=== PATIENT | male | born 1990 | race African-American/Black ===

== ENCOUNTER 2016-12-06 19:15 | Emergency (ER) | payer MEDICAID, OTHER ==
[~2016-12-06] VITALS: Ht 177.8 cm; Wt 81.0 kg
[2016-12-06] MEDS ORDERED: ONDANSETRON HCL 4 MG/2 ML VIAL IVP ONE ×2 (21:00→22:45)
[2016-12-06] MEDS ORDERED: SODIUM CHLORIDE 0.9% 1,000 ML IV ONE ×2 (21:00→22:45)
[2016-12-06 21:09] LABS: BASOPHILS # (AUTO) 0.01 K/uL (0.00-0.20); BASOPHILS % (AUTO) 0.1 % (0.0-2.0); EOSINOPHILS % (AUTO) 0.01 % (1.0-6.0); HEMATOCRIT 52.6 % (41-53); LYMPHOCYTES # (AUTO) 0.7 K/uL (1.0-4.8); LYMPHOCYTES % (AUTO) 3.4 % (22.0-44.0); MEAN CORPUSCULAR HEMOGLOBIN 28.1 pg (26.0-34.0); MEAN CORPUSCULAR HGB CONC 32.3 G/dL (31.0-37.0); MEAN CORPUSCULAR VOLUME 87 fL (80-100); MONOCYTES # (AUTO) 0.4 K/uL (0.1-1.0); MONOCYTES % (AUTO) 1.9 % (2.0-9.0); NEUTROPHILS # (AUTO) 20.1 K/uL (1.8-7.7); NEUTROPHILS % (AUTO) 94.7 % (40.0-70.0); PLATELET COUNT (AUTO) 210 K/uL (150-450); RED BLOOD CELL COUNT(AUTO) 6.06 MIL/uL (4.50-5.90); RED CELL DISTRIBUTION WIDTH 14.3 % (11.5-14.5); WHITE BLOOD COUNT (AUTO) 21.2 K/uL (4.5-11.0)
[2016-12-06 21:14] LABS: ANION GAP 13 mmol/L (8-16); CALCIUM, TOTAL 8.6 mg/dL (8.8-10.5); CARBON DIOXIDE 24 mmol/L (22-29); CHLORIDE 103 mmol/L (98-107); CREATININE 1.53 mg/dL (0.60-1.30); GLOMERULAR FILTR. RATE CALC > 60 mL/min (>60); POTASSIUM 3.6 mmol/L (3.5-5.1); SODIUM SERUM 140 mmol/L (136-145); UREA NITROGEN, BLOOD 7 mg/dL (7-18)
[2016-12-06 21:22] LABS: RBC MORPHOLOGY COMMENT NORMAL RBC MORPH
[2016-12-06 21:23] LABS: ALANINE AMINOTRANSFERASE 35 U/L (12-78); ALBUMIN 3.5 g/dL (3.4-5.0); ASPARTATE AMINOTRANSFERASE 29 U/L (15-37); BILIRUBIN,TOTAL 0.5 mg/dL (0.1-1.0); TOTAL PROTEIN, SERUM 6.5 g/dL (6.4-8.2)
[2016-12-06] MEDS ORDERED: DiphenhydrAMINE HCL 50 MG/ML VIAL IVP ONE (21:45)
[2016-12-06] MEDS ORDERED: PROMETHAZINE HCL 25 MG/ML VIAL IM ONE (21:45)
[2016-12-06] MEDS ORDERED: BARIUM SULFATE 0.1% SUSPENSION 450 ML BOTTLE PO ONE (22:15)
[2016-12-06] MEDS ORDERED: HYDROmorphone 2 MG/ML SYRINGE IVP ONE (22:45)
[2016-12-06 23:07] LABS: APPEARANCE,URINE CLEAR (CLEAR); GLUCOSE, URINE (UA) NEGATIVE (NEGATIVE); KETONES,URINE >=80 mg/dL (NEGATIVE); LEUKOCYTE ESTERASE ,URINE NEGATIVE (NEGATIVE); OCCULT BLOOD,URINE NEGATIVE (NEGATIVE); PROTEIN,URINE NEGATIVE (NEGATIVE)
[2016-12-06 23:10] LABS: ADD UA MICROSCOPIC NO
[2016-12-06] MEDS ORDERED: IODIXANOL 320 MG/ML 100 ML VIAL ONE (23:32)
[2016-12-06] MEDS ORDERED: SODIUM CHLORIDE 0.9% 100 ML ONE (23:33)
[2016-12-07 01:13] VITALS: BP 133/71
== END 2016-12-07 01:16 | disposition home or self-care (01) ==
LOC: EMS 19:17
DX: R10.9 Unspecified abdominal pain (principal); R11.2 Nausea with vomiting, unspecified; K21.9 Gastro-esophageal reflux disease without esophagitis; F17.210 Nicotine dependence, cigarettes, uncomplicated; F12.90 Cannabis use, unspecified, uncomplicated
CPT/HCPCS: 36415; 74177; 80053; 80307; 81003; 83690; 85025; 96361; 96372; 96374; 96375; 96376; 99285; J1170; J1200; J2405; J2550; J7030; J7050; Q9967; Z7610

== ENCOUNTER 2017-01-03 21:52 | Emergency (ER) | payer OTHER ==
[~2017-01-03] VITALS: Ht 172.7 cm; Wt 72.0 kg
[2017-01-03] MEDS ORDERED: PROM25 PO (22:01)
[2017-01-03] MEDS ORDERED: SODIUM CHLORIDE 0.9% 1,000 ML IV ONE (22:15)
[2017-01-03] MEDS ORDERED: HALOPERIDOL LACTATE 5 MG/ML VIAL IVP ONE (22:15)
[2017-01-04 00:41] VITALS: BP 128/82
== END 2017-01-04 00:44 | disposition home or self-care (01) ==
LOC: EMS 21:53
DX: R11.2 Nausea with vomiting, unspecified (principal); K21.9 Gastro-esophageal reflux disease without esophagitis; F12.10 Cannabis abuse, uncomplicated; F17.210 Nicotine dependence, cigarettes, uncomplicated
CPT/HCPCS: 96361; 96374; 99285; J1630; J7030

== ENCOUNTER 2017-07-05 20:57 | Emergency (ER) | payer OTHER ==
[~2017-07-05] VITALS: Ht 175.3 cm; Wt 81.8 kg
[~2017-07-05 20:57] MED LIST: PROM25 PO
[2017-07-05] MEDS ORDERED: HALOPERIDOL LACTATE 5 MG/ML VIAL IVP ONE (22:15)
[2017-07-05] MEDS ORDERED: SODIUM CHLORIDE 0.9% 1,000 ML IV ONE (22:15)
[2017-07-05 22:45] LABS: BASOPHILS # (AUTO) 0.02 K/uL (0.00-0.20); BASOPHILS % (AUTO) 0.2 % (0.0-2.0); EOSINOPHILS # (AUTO) 0.01 K/uL (0.00-0.70); EOSINOPHILS % (AUTO) 0.11 % (1.0-6.0); HEMATOCRIT 50.5 % (41-53); HEMOGLOBIN 16.1 g/dL (13.5-17.5); LYMPHOCYTES # (AUTO) 1.4 K/uL (1.0-4.8); LYMPHOCYTES % (AUTO) 10.6 % (22.0-44.0); MEAN CORPUSCULAR HEMOGLOBIN 28.1 pg (26.0-34.0); MEAN CORPUSCULAR HGB CONC 31.9 G/dL (31.0-37.0); MEAN CORPUSCULAR VOLUME 88 fL (80-100); MONOCYTES # (AUTO) 0.4 K/uL (0.1-1.0); MONOCYTES % (AUTO) 3.2 % (2.0-9.0); PLATELET COUNT (AUTO) 238 K/uL (150-450); RED BLOOD CELL COUNT(AUTO) 5.75 MIL/uL (4.50-5.90); RED CELL DISTRIBUTION WIDTH 14.7 % (11.5-14.5); WHITE BLOOD COUNT (AUTO) 12.8 K/uL (4.5-11.0)
[2017-07-05 22:56] LABS: ANION GAP 14 mmol/L (8-16); CALCIUM, TOTAL 9.8 mg/dL (8.8-10.5); CARBON DIOXIDE 25 mmol/L (22-29); CHLORIDE 104 mmol/L (98-107); CREATININE 1.26 mg/dL (0.60-1.30); GLOMERULAR FILTR. RATE CALC > 60 mL/min (>60); POTASSIUM 4.2 mmol/L (3.5-5.1); SODIUM SERUM 143 mmol/L (136-145); UREA NITROGEN, BLOOD 8 mg/dL (7-18)
[2017-07-05 23:01] LABS: ALANINE AMINOTRANSFERASE 116 U/L (12-78); ALBUMIN 4.7 g/dL (3.4-5.0); ASPARTATE AMINOTRANSFERASE 79 U/L (15-37); BILIRUBIN,TOTAL 0.4 mg/dL (0.1-1.0); TOTAL PROTEIN, SERUM 8.7 g/dL (6.4-8.2)
[2017-07-06 00:01] LABS: APPEARANCE,URINE CLEAR (CLEAR); GLUCOSE, URINE (UA) NEGATIVE (NEGATIVE); KETONES,URINE TRACE mg/dL (NEGATIVE); LEUKOCYTE ESTERASE ,URINE NEGATIVE (NEGATIVE); OCCULT BLOOD,URINE NEGATIVE (NEGATIVE); PH,URINE 7.5 (5.0-8.0); PROTEIN,URINE NEGATIVE (NEGATIVE)
[2017-07-06 00:18] LABS: RBC,URINE 0-2 /HPF (0-2); WBC,URINE 0-2 /HPF (0-5)
[2017-07-06 00:30] VITALS: BP 130/74
== END 2017-07-06 01:04 | disposition home or self-care (01) ==
LOC: EMS 21:00
DX: F19.10 Other psychoactive substance abuse, uncomplicated (principal); R11.2 Nausea with vomiting, unspecified; R10.13 Epigastric pain; K21.9 Gastro-esophageal reflux disease without esophagitis; F17.210 Nicotine dependence, cigarettes, uncomplicated; F12.90 Cannabis use, unspecified, uncomplicated
CPT/HCPCS: 36415; 80053; 80307; 81001; 83690; 85025; 96361; 96374; 99284; J1630; J7030

== ENCOUNTER 2020-09-05 17:17 | Emergency (ER) | payer OTHER ==
[~2020-09-05 17:17] MED LIST changes: +PROM-163 PO; -PROM25 PO
[2020-09-05] MEDS ORDERED: HYDROCODONE/ACETAMINOPHEN 5-325 MG TABLET PO ONE (19:45)
[2020-09-05 20:10] VITALS: BP 132/76
== END 2020-09-05 20:30 | disposition home or self-care (01) ==
LOC: EMS 17:20
DX: S96.911A Strain of unspecified muscle and tendon at ankle and foot level, right foot, initial encounter (principal); K21.9 Gastro-esophageal reflux disease without esophagitis; F17.210 Nicotine dependence, cigarettes, uncomplicated; W05.1XXA Fall from non-moving nonmotorized scooter, initial encounter; Y93.89 Activity, other specified; Y92.89 Other specified places as the place of occurrence of the external cause; Y99.8 Other external cause status
CPT/HCPCS: 99284; 73610-TC; 73630-TC; Z7502; Z7610

== ENCOUNTER 2023-05-25 21:48 | Emergency (ER) | payer OTHER ==
[~2023-05-25] VITALS: Ht 172.7 cm; Wt 70.5 kg
[~2023-05-25 21:48] MED LIST changes: -PROM-163 PO; +PROM-223 PO
[2023-05-25 21:59] VITALS: TEMP 97.5
[2023-05-25] MEDS ORDERED: ONDANSETRON HCL 4 MG/2 ML VIAL IVP ONE (22:30)
[2023-05-25] MEDS ORDERED: MORPHINE SULFATE 4 MG/ML SYRINGE IVP ONE (22:30)
[2023-05-25] MEDS ORDERED: SODIUM CHLORIDE 0.9% 2,000 ML IV ONE (22:30)
[2023-05-25 22:44] LABS: ANION GAP 14 mmol/L (8-16); CALCIUM, TOTAL 9.8 mg/dL (8.8-10.5); CARBON DIOXIDE 23 mmol/L (22-29); CHLORIDE 99 mmol/L (98-107); CREATININE 1.26 mg/dL (0.60-1.30); GLOMERULAR FILTR. RATE CALC > 60 mL/min (>60); GLUCOSE,RANDOM 114 mg/dL (70-110); POTASSIUM 3.7 mmol/L (3.5-5.1); SODIUM SERUM 136 mmol/L (136-145); UREA NITROGEN, BLOOD 9 mg/dL (7-18)
[2023-05-25 22:50] LABS: ALANINE AMINOTRANSFERASE 42 U/L (12-78); ALBUMIN 3.9 g/dL (3.4-5.0); ALKALINE PHOSPHATASE 82 U/L (46-116); ASPARTATE AMINOTRANSFERASE 25 U/L (15-37); BILIRUBIN,TOTAL 0.4 mg/dL (0.1-1.0); LIPASE 107 U/L (16-77); TOTAL PROTEIN, SERUM 9.1 g/dL (6.4-8.2)
[2023-05-25] MEDS ORDERED: SODIUM CHLORIDE 0.9% 100 ML ONE (23:08)
[2023-05-25] MEDS ORDERED: IOHEXOL 350 MG/ML 100 ML VIAL ONE (23:09)
[2023-05-25] MEDS ORDERED: IOHEXOL 9 MG/ML 500 ML BOTTLE PO ONE (23:15)
[2023-05-25 23:27] LABS: BASOPHILS % (AUTO) 0.4 % (0.0-2.0); EOSINOPHILS % (AUTO) 1.6 % (1.0-6.0); HEMATOCRIT 45.6 % (41-53); HEMOGLOBIN 14.9 g/dL (13.5-17.5); LYMPHOCYTES # (AUTO) 1.9 K/uL (1.0-4.8); LYMPHOCYTES % (AUTO) 16.6 % (22.0-44.0); MEAN CORPUSCULAR HEMOGLOBIN 28.3 pg (26.0-34.0); MEAN CORPUSCULAR HGB CONC 32.6 G/dL (31.0-37.0); MEAN CORPUSCULAR VOLUME 87 fL (80-100); MONOCYTES # (AUTO) 0.7 K/uL (0.1-1.0); MONOCYTES % (AUTO) 5.7 % (2.0-9.0); NEUTROPHILS # (AUTO) 8.8 K/uL (1.8-7.7); NEUTROPHILS % (AUTO) 75.7 % (40.0-70.0); PLATELET COUNT (AUTO) 370 K/uL (150-450); RED BLOOD CELL COUNT(AUTO) 5.26 MIL/uL (4.50-5.90); RED CELL DISTRIBUTION WIDTH 14.6 % (11.5-14.5); WHITE BLOOD COUNT (AUTO) 11.6 K/uL (4.5-11.0)
[2023-05-26] MEDS ORDERED: HYDROmorphone HCL 2 MG/ML SYRINGE IVP ONE (01:00)
[2023-05-26] MEDS: ONDANSETRON HCL 4 MG/2 ML VIAL IVP ONE ×2 (01:24→01:53)
[2023-05-26] MEDS: PROCHLORPERAZINE EDISYLATE 5 MG/ML 2 ML VIAL IVP ONE ×2 (01:25→01:52)
[2023-05-26 02:39] LABS: APPEARANCE,URINE CLEAR (CLEAR); BILIRUBIN,URINE NEGATIVE (NEGATIVE); COLOR,URINE LIGHT YELLOW (YELLOW); GLUCOSE, URINE (UA) NEGATIVE (NEGATIVE); LEUKOCYTE ESTERASE ,URINE NEGATIVE (NEGATIVE); NITRATE,URINE NEGATIVE (NEGATIVE); OCCULT BLOOD,URINE NEGATIVE (NEGATIVE); PH,URINE 8.5 (5.0-8.0); SPECIFIC GRAVITIY, URINE 1.048 (1.003-1.030); UROBILINOGEN,URINE <=1.0 mg/dL (<=1.0)
[2023-05-26 02:47] LABS: PROTEIN,URINE NEGATIVE (NEGATIVE)
[2023-05-26] MEDS ORDERED: ONDA-104 PO (03:39)
[2023-05-26] MEDS ORDERED: PROC10TA61 PO (03:39)
[2023-05-26] MEDS ORDERED: MAG30ORA11 PO (03:40)
[2023-05-26] MEDS ORDERED: OMEP20 PO (03:40)
[2023-05-26 03:49] VITALS: BP 127/81; PULSE 74; RESP 19
== END 2023-05-26 04:15 | disposition home or self-care (01) ==
LOC: EMS 21:49
DX: K29.70 Gastritis, unspecified, without bleeding (principal); B96.89 Other specified bacterial agents as the cause of diseases classified elsewhere; R10.84 Generalized abdominal pain; R11.2 Nausea with vomiting, unspecified; F17.210 Nicotine dependence, cigarettes, uncomplicated; F12.90 Cannabis use, unspecified, uncomplicated
CPT/HCPCS: 99285; 96374; 96375 ×2; 80053; 81003; 83690; 85025; 36415; 74177; 96361; 96376; J2270; J2405 ×2; Q9967; J7030; J7050; J0780